=== PATIENT | male | born 1975 | race Hispanic/Latino ===

== ENCOUNTER 2021-06-10 14:54 | Outpatient (AMB) | payer MEDICAID, SELFPAY ==
--- NOTE | 2021-06-10 14:55 | CWCCLINC_ITS ---
OP Care Transition CWC RN Coordinator DC F/U Call Post Discharge Follow-up call: First Attempt FU Call Follow up call date: 06/10/21 Scheduled Follow-up with PCP: Yes ([facility] on 06/20- He is Covid + but asymp and they wont see him until that date.) Prescribed Medication obtained: Yes (Had difficulty obtaining needles. Didnt get a sliding scale with DC instru) Follow-up call Summary: Patient doing well, was at work. Stated he did not get a sliding scale instructions with discharge and wasnt sure how much insulin to take so he has just been taking 5 every time, but his FSBG has been over 300. I spoke with Dr. Arellano and confirmed Sensitive Sliding Scale for patient. I sent patient sliding scale instructions, and informed him to call me immediately with any questions. He was already back in the ED yesterday because he didnt get any needles for the pen. High risk for readmission. [facility] [employer] Follow-up call Follow up call date: 06/10/21 Follow-up call Summary: Patient doing well, was at work. Stated he did not get a sliding scale instructions with discharge and wasnt sure how much insulin to take so he has just been taking 5 every time, but his FSBG has been over 300. I spoke with Dr. Arellano and confirmed Sensitive Sliding Scale for patient. I sent patient sliding scale instructions, and informed him to call me immediately with any questions. He was already back in the ED yesterday because he didnt get any needles for the pen. High risk for readmission. *CWC Office Visit complete CWC Offive Visit Complete CWC Visit Complete?: Yes
== END 2021-06-10 14:59 | disposition home or self-care (01) ==
LOC: HODCWC 14:54
PROVIDERS: PCP Family Medicine; Referring Provider Family Medicine